=== PATIENT | male | born 1960 | race Hispanic/Latino ===

== ENCOUNTER 2018-05-05 07:20 | Day surgery (SDC) | payer BC ==
[2018-05-05] MEDS ORDERED: NACL 0.9% 500 ML 500 ML IV SCH (08:00)
[2018-05-05 08:09] LABS: BUN/Creatinine Ratio 19; Blood Urea Nitrogen 13 mg/dL (9-20); Calcium 9.2 mg/dL (8.4-10.2); Hemolysis Index 2
[2018-05-05 08:41] LABS: INR 0.87 (0.87-1.13); Partial Thromboplastin Time 25.2 Sec. (24.2-36.6)
[2018-05-05 08:51] LABS: Hematocrit 42.6 % (35.5-45.6); Mean Corpuscular HGB Conc 33 % (32-34); Mean Corpuscular Volume 94 fl (84-94); Red Blood Count 4.55 M/mm3 (3.65-5.03)
[2018-05-05 08:52] LABS: Basophils % (Auto) 0.3 % (0.0-1.8); Eosinophils % (Auto) 0.5 % (0.0-4.3); Lymphocytes # (Auto) 1.1 K/mm3 (1.2-5.4); Lymphocytes % (Auto) 14.1 % (13.4-35.0); Monocytes # (Auto) 0.5 K/mm3 (0.0-0.8); Monocytes % (Auto) 6.6 % (0.0-7.3); Platelet Count 245 K/mm3 (140-440); Red Cell Distribution Width 13.6 % (13.2-15.2)
[2018-05-05 08:54] LABS: BUN/Creatinine Ratio 25; Blood Urea Nitrogen 20 mg/dL (9-20); Calcium 9.7 mg/dL (8.4-10.2); Hemolysis Index 3
[2018-05-05 09:05] LABS: Hematocrit 44.8 % (35.5-45.6); Hemoglobin 14.9 gm/dl (11.8-15.2); Mean Corpuscular Volume 90 fl (84-94); Red Blood Count 4.98 M/mm3 (3.65-5.03)
[2018-05-05 09:06] LABS: Basophils % (Auto) 0.3 % (0.0-1.8); Eosinophils # (Auto) 0.4 K/mm3 (0.0-0.4); Eosinophils % (Auto) 4.8 % (0.0-4.3); Lymphocytes # (Auto) 2.3 K/mm3 (1.2-5.4); Lymphocytes % (Auto) 26.3 % (13.4-35.0); Mean Corpuscular HGB Conc 33 % (32-34); Mean Platelet Volume 7.3 fl (6-12); Monocytes # (Auto) 0.6 K/mm3 (0.0-0.8); Monocytes % (Auto) 7.1 % (0.0-7.3); Platelet Count 228 K/mm3 (140-440); Red Cell Distribution Width 13.6 % (13.2-15.2)
[2018-05-05 09:19] LABS: INR 0.85 (0.87-1.13); Partial Thromboplastin Time 25.2 Sec. (24.2-36.6)
[2018-05-05] MEDS ORDERED: XYLOCAINE 2% INFILTRATI ONE (09:39)
[2018-05-05] MEDS ORDERED: CALAN ONE (09:39)
[2018-05-05] MEDS ORDERED: HEPARIN/NS 5000 UNIT/500ML(CATH LAB) 1,000 ML IR ONE (09:39)
[2018-05-05] MEDS ORDERED: NITROGLYCERIN SYRINGE 0 ML ONE (09:39)
[2018-05-05] MEDS ORDERED: HEPARIN 10,000 UNITS/10 ML ONE (09:39)
[2018-05-05] MEDS ORDERED: VERSED ONE (09:40)
[2018-05-05] MEDS ORDERED: SUBLIMAZE ONE (09:40)
--- NOTE | 2018-05-05 11:41 | Short Stay Summary ---
Short Stay Documentation Date of service: 05/05/18 - History H&P: obtained from office - Allergies and Medications Current Medications: Allergies Anesthetics - Amide Type Allergy (Verified 05/05/18 07:26) Unknown Anesthetics - Meliza Type- Parabens Allergy (Verified 05/05/18 07:27) Shortness of Breath atropine [From ] Allergy (Verified 05/05/18 07:27) Hives hyoscyamine [From ] Allergy (Verified 05/05/18 07:27) Hives phenobarbital [From ] Allergy (Verified 05/05/18 07:27) Hives scopolamine [From ] Allergy (Verified 05/05/18 07:27) Hives Home Medications Medication Instructions Recorded Confirmed Last Taken Type Aspirin EC [Aspirin Enteric Coated 81 mg PO DAILY 05/05/18 05/05/18 05/05/18 05:30 History TAB] 81mg AtorvaSTATin [Lipitor] 40 mg PO DAILY 05/05/18 05/05/18 05/05/18 05:30 History Candesartan Cilexetil [Atacand] 4 mg PO QAM 05/05/18 05/05/18 05/04/18 History 4mg Clopidogrel Bisulfate [Plavix] 75 mg PO DAILY 05/05/18 05/05/18 05/05/18 05:30 History Glimepiride [Amaryl] 4 mg PO DAILY 05/05/18 05/05/18 05/05/18 05:30 History HYDROcodone/ACETAMINOPHEN 1 tab PO BID 05/05/18 05/05/18 04/07/18 History [Hydrocodone-Acetamin 10-325 mg] 1 tab ISOSORBIDE MONOnitrate [Imdur ER] 30 mg PO QAM 05/05/18 05/05/18 05/05/18 05:30 History 30mg Ibuprofen [Ibu] 800 mg PO TID PRN 05/05/18 05/05/18 Unknown History Metformin HCl [Glucophage] 1,000 mg PO BID 05/05/18 05/05/18 05/04/18 History 1000mg Metoprolol Xl [Metoprolol 25 mg PO DAILY 05/05/18 05/05/18 05/05/18 History SUCCINATE ER TAB] 25mg Mv,Wagner,Min/Iron/Folic Acid/Lut 1 tab PO DAILY 05/05/18 05/05/18 05/05/18 05:30 History [Complete Multi Tablet] 1 tab Niacin [Niaspan ER] 1,000 mg PO QPM 05/05/18 05/05/18 05/04/18 History 1000mg [place]-3S/Dha/Epa/Fish Oil [Fish 1 cap PO QHS 05/05/18 05/05/18 05/04/18 History Oil [place]-3 Softgel] 1 cap Pantoprazole [Protonix TAB] 40 mg PO QPM 05/05/18 05/05/18 05/04/18 History 40mg Papav/Phentolam/Alprost/Water 15 units SQ PRN 05/05/18 05/05/18 10/31/17 History Sitagliptin Phosphate [Januvia] 100 mg PO DAILY 05/05/18 05/05/18 05/05/18 05:30 History 100mg Active Medications Sodium Chloride (Nacl 0.9% 500 Ml) 500 mls @ 50 mls/hr IV DIRECT STEPHANIA Stop: 05/05/18 17:59 Last Admin: 05/05/18 09:11 Dose: 50 mls/hr Documented by: - Physical exam General appearance: no acute distress Integumentary: no rash HEENT: Atraumatic Lungs: Clear to auscultation Breasts: deferred Heart: Regular rate Gastrointestinal: normal Male Genitourinary: deferred Female Genitourinary: deferred Rectal Exam: deferred Extremities: no ischemia Neurological: Normal gait - Brief post op/procedure progress note Date of procedure: 05/05/18 Pre-op diagnosis: SOB, abnormal MPI Post-op diagnosis: same Procedure: LHC, LV Anesthesia: MAC Findings: See report Surgeon: HOWARD KNIGHT Estimated blood loss: none Pathology: none Condition: stable - Hospital course Hospital course: Uneventful - Disposition Condition at discharge: Good Disposition: [id number] TO HOME OR SELFCARE Short Stay Discharge Plan Activity: other (no driving for 2 days) Weight Bearing Status: Non-Weight Bearing (for 2 days) Diet: low cholesterol, low salt, diabetic Wound: keep clean and dry Special Instructions: hold Metformin (for 2 days) Follow up with: DONNA LAKE MD [Primary Care Provider] - 7 Days
[2018-05-05] MEDS ORDERED: NACL 0.9% 1000 ML 1,000 ML IV SCH (12:00)
--- NOTE | 2018-05-05 12:29 | Cardiac Catherization Report ---
LEFT HEART CATHETERIZATION INDICATION: Shortness of breath, fatigue, abnormal myocardial perfusion scan. ORDERING PHYSICIAN: Sherine Tucker MD PROCEDURES PERFORMED: 1. Selective left and right coronary angiography. 2. Left ventriculography. 3. Selective angiography of the saphenous vein graft to the LAD. 4. Selective angiography of the DEL[place] graft to the LAD. 5. Selective angiography of the saphenous vein graft to the PLOM. 6. Selective angiography of the saphenous vein graft to the right coronary artery. 7. Ascending aortography. DESCRIPTION OF PROCEDURE: After obtaining the consent, the patient was draped using sterile technique. A 2% lidocaine was injected into the right groin. A 5-[place] vascular sheath was inserted into the right femoral artery using a micropuncture technique. A 5-[place] JL4 catheter was used to selectively engage the left coronary artery. A 5-[place] JR4 catheter was used to selectively engage the right coronary artery. A 5-[place] JR4 catheter was used to hand inject the left ventriculogram. A 5-[place] JR4 catheter was used to inject the DEL[place]Z graft to the LAD. A 5-[place] JR4 catheter was used to inject the saphenous vein graft to the LAD. A 5-[place] AR MOD catheter was used to selectively engage the saphenous vein graft to the right coronary artery. A 5-[place] AL1 catheter was used to selectively engage the saphenous vein graft to the posterolateral obtuse marginal. A pigtail catheter was used to perform an ascending aortogram. FINDINGS: HEMODYNAMICS: Aortic pressure was 115/68. LV systolic pressure 121 mmHg, LVEDP 17 mmHg. CARDIAC STRUCTURES: The left ventricle is normal in size. The left ventricular ejection fraction is estimated between 50% and 55%. There is no regional wall motion abnormality detected. The proximal aortic root is within normal limits. CORONARY ANATOMY: 1. The left main has mild luminal irregularities. 2. The [place] LAD has severe disease extending from the ostium all the way to the mid vessel. The mid LAD is 100% occluded. Competitive flow is noted in the mid and distal LAD. 3. The left circumflex artery is patent. There is evidence of a patent stent noted in the PLOM. There is a jailing of the ostial second obtuse marginal by the PLOM stent. The AV groove vessel also ostium is jailed by the PLOM stent. The PLOM tapers distally to a 1 mm vessel diameter. 4. Right coronary artery: The right coronary artery is a dominant vessel. The right coronary artery has evidence of an 80% focal stenosis in the proximal segment. The right coronary artery is occluded after its mid segment. 5. The saphenous vein graft to the diagonal artery is patent. It is also antegradely supplying the proximal and mid LAD. 6. The DEL[place]UZ to the LAD is patent with good distal runoff. The very distal LAD is a very small caliber vessel with a 99% focal stenosis. 7. The saphenous vein graft to the posterolateral obtuse marginal is occluded. 8. The saphenous vein graft to the right coronary artery is patent. There is good distal runoff. There is a patent stent noted in the posterior descending artery. There is some mild to moderate disease noted in the PLVB. IMPRESSION: 1. 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 The PLOM stent is patent with 40% in-stent restenosis. 2. The saphenous vein graft to the diagonal artery is patent with this graft also supplying the proximal and mid LAD retrogradely. 3. This DEL[place]CR[place]Z graft to the distal LAD is patent with excellent vessel runoff. The distal LAD has a 99% focal stenosis and a 1 mm caliber vessel. 4. The saphenous vein graft to the PLOM is occluded. 5. The saphenous vein graft to the right coronary artery is patent. There is an excellent distal runoff with a patent stent in the PDA. There is moderate disease noted in the PLVB, which is a small caliber vessel. 6. The left ventricle is normal in size with an ejection fraction estimated between 50% and 55%. 7. The LVEDP was measured at 70 mmHg. 8. The coronary anatomy is practically unchanged from previous catheterization done in 2016. RECOMMENDATIONS: The patient will be recommended for continuation of medical therapy. JOB# [id number] RON/ALIZA
[2018-05-05 13:37] VITALS: BP 109/76
== END 2018-05-05 14:45 | disposition home or self-care (01) ==
LOC: CATHLABREC 07:20
PROVIDERS: ATTEND Internal Medicine
DX: I25.810 Atherosclerosis of coronary artery bypass graft(s) without angina pectoris (principal); R53.83 Other fatigue; R06.02 Shortness of breath; F17.210 Nicotine dependence, cigarettes, uncomplicated; G62.9 Polyneuropathy, unspecified; E78.00 Pure hypercholesterolemia, unspecified; I10 Essential (primary) hypertension; G47.30 Sleep apnea, unspecified; K21.9 Gastro-esophageal reflux disease without esophagitis; M19.90 Unspecified osteoarthritis, unspecified site; Z79.899 Other long term (current) drug therapy; Z79.82 Long term (current) use of aspirin; Z79.84 Long term (current) use of oral hypoglycemic drugs; Z95.1 Presence of aortocoronary bypass graft; Z98.890 Other specified postprocedural states; Z83.3 Family history of diabetes mellitus; Z82.49 Family history of ischemic heart disease and other diseases of the circulatory system; Z88.8 Allergy status to other drugs, medicaments and biological substances
CPT/HCPCS: 36415; 80048; 85025; 85610; 85730; 93005; 93010; 93459; 99156; 99157; J1644; J2250; J3010; J7040; Q9967